=== PATIENT | female | born 1985 | race American Indian/Alaskan Native ===

== ENCOUNTER 2021-01-31 09:10 | Emergency (ER) | payer SELFPAY ==
[2021-01-31 09:38] VITALS: BP 179/119
== END 2021-01-31 12:20 | disposition left against medical advice (07) ==
LOC: ED 09:10
DX: N89.8 Other specified noninflammatory disorders of vagina (principal); Z53.21 Procedure and treatment not carried out due to patient leaving prior to being seen by health care provider

== ENCOUNTER 2021-02-02 11:00 | Outpatient (CLI) | payer MEDICAID | END 2021-02-02 11:01 | disposition home or self-care (01) | LOC: SLR 11:00 | PROVIDERS: ATTEND Internal Medicine | DX: G47.33 Obstructive sleep apnea (adult) (pediatric) (principal); I10 Essential (primary) hypertension | CPT/HCPCS: 95811 ==